=== PATIENT | female | born 1965 | race Caucasian/White ===

== ENCOUNTER 2018-04-03 19:25 | Emergency (ER) | payer OTHER ==
[~2018-04-03] VITALS: Ht 157.5 cm; Wt 92.1 kg
[~2018-04-03 19:25] MED LIST: ALBU90OI INH; ALPR.25; ALPR.25 PO; ANTOXYBENA OT; ANXIETY MED; AZIT250 PO; BENZ100A PO; CARI350 PO; CEPH250A; CITA20 PO; CLIN300; CLIN300 PO; CLON.1 PO; CODACE30 PO; CONEST.625; CRUTCH4 USE; CYCL10 PO; Cleocin HCl300 MG PO; DOXY100 PO; ERYT500 PO; ESTR2 PO; GABA100 PO; HYDACE10B PO; HYDACE5; HYDACE5 PO; HYDR-86; IBUP600 PO; IBUP800 PO; KETO10 PO; Mucinex600 MG PO; NAPR500 PO; Naprosyn500 MG PO; ONDA4ODT MM; OXYACE5T; OXYACE5T PO; OXYC5; PERIDEX15 ML MM; PRED20 PO; PROM25 PO; PROM25S PR; ROXICODONE5 MG PO; RXALBOI INH; RXANTBENOT AU; RXCODACET PO; RXERYT500 PO; RXHYDACE PO; RXONDA4ODT MM; RXTRAM50 PO; TRAM50 PO; TRAZ100 PO; TRAZ50 PO; Ultram50 MG PO
[2018-04-03 20:06] LABS: Source, Urine Voided
[2018-04-03 20:11] LABS: Appearance, Urine Clear (Clear); Bilirubin, Urine Neg (Neg); Blood, Urine Neg (Neg); Color, Urine Yellow (P-Yellow); Glucose Qualitative, Urine Neg (Neg); Ketones, Urine Neg (Neg); Leukocyte Esterase, Urine Neg (Neg); Nitrite, Urine Neg (Neg); Protein, Urine Neg (Neg); Urobilinogen, Urine NORM (Normal)
[2018-04-03 20:13] LABS: BASOPHILS ABSOLUTE AUTO 0.03 K/mm3 (0.00-0.23); BASOPHILS PERCENT AUTO 0 % (0-2); EOSINOPHILS ABSOLUTE AUTO 0.12 K/mm3 (0.00-0.68); EOSINOPHILS PERCENT AUTO 2 % (0-6); Hematocrit 41.7 % (33.0-51.0); Hemoglobin 13.4 g/dL (11.5-16.0); IMMATURE GRAN ABSOLUTE AUTO 0.02 K/mm3 (0.00-0.10); IMMATURE GRAN PERCENT AUTO 0 % (0-1); LYMPHOCYTES ABSOLUTE AUTO 2.81 K/mm3 (0.84-5.20); LYMPHOCYTES PERCENT AUTO 39 % (21-46); MONOCYTES ABSOLUTE AUTO 0.54 K/mm3 (0.16-1.47); MONOCYTES PERCENT AUTO 8 % (4-13); Mean Corpuscular HGB 27.9 pg (26.0-34.0); Mean Corpuscular HGB Conc 32.1 g/dL (31.5-36.5); Mean Corpuscular Volume 87 fL (80-100); Mean Platelet Volume 11.4 fL (9.1-12.4); NEUTROPHILS ABSOLUTE AUTO 3.63 K/mm3 (1.96-9.15); NEUTROPHILS PERCENT AUTO 51 % (41-73); Platelet Count 369 K/mm3 (150-400); RDW Coefficient Variation 12.4 % (11.7-14.2); RDW Standard Deviation 39.3 fL (35.1-46.3); Red Blood Cell Count 4.81 M/mm3 (3.80-5.20); White Blood Cell Count 7.15 K/mm3 (4.00-11.30)
[2018-04-03 20:47] LABS: Alanine Aminotransfer (ALT/SGP 26 U/L (12-78); Albumin, Blood 4.2 g/dL (3.4-5.0); Alk Phos 140 U/L (50-136); Anion Gap 4 mmol/L (6-16); Aspartate Aminotrans (AST/SGOT 25 U/L (12-37); Bilirubin, Total 0.3 mg/dL (0.1-1.0); Blood Urea Nitrogen 15 mg/dL (8-24); Bun/Creatinine Ratio 24.4 (12.0-20.0); CO2, Blood 28 mmol/L (21-32); Calcium, Blood 9.3 mg/dL (8.5-10.1); Chloride, Blood 109 mmol/L (98-108); Creatinine, Blood 0.62 mg/dL (0.40-1.00); Globulin, Blood 4.3 g/dL (2.2-4.0); Glomerular Filtration Rate >60 (60-); Glucose, Blood 116 mg/dL (70-99); Sodium, Blood 141 mmol/L (136-145); Total Protein, Blood 8.5 g/dL (6.4-8.2)
[2018-04-03] MEDS ORDERED: SENN187 PO (21:50)
== END 2018-04-03 22:26 | disposition home or self-care (01) ==
LOC: ER 19:25
PROVIDERS: Emergency Medicine
DX: R10.31 Right lower quadrant pain (principal); R11.0 Nausea; Z88.0 Allergy status to penicillin; Z79.899 Other long term (current) drug therapy; Z79.1 Long term (current) use of non-steroidal anti-inflammatories (NSAID)
CPT/HCPCS: 36415; 74018; 80053; 81003; 83690; 85025; 99283

== ENCOUNTER 2019-03-24 08:14 | Day surgery (SDC) | payer OTHER ==
[~2019-03-24] VITALS: Ht 157.5 cm; Wt 90.1 kg
[~2019-03-24 08:14] MED LIST changes: +ACET325 PO; +METPHE20 PO; +SENN187 PO
[2019-03-24] MEDS ORDERED: Norco 5-325 Ta1 EACH (09:36)
[2019-03-24] MEDS ORDERED: ALPR.25 PO (09:40)
--- NOTE | 2019-03-24 10:04 | NUR ---
PATIENT GAVE PERMISSION FOR ME TO CARE FOR HER TODAY 03/24/19. History, Chart, Medications and Allergies reviewed before start of procedure.Patient confirms NPO status and agrees with scheduled surgery. Patient reports completing Chlorhexadine shower X2 prior to admission to hospital.Lungs clear T/O to Auscultation. Surgical site prepped with 2% Chlorhexidine cloth wipe.
--- NOTE | 2019-03-24 10:12 | NUR ---
STUDENT RN ASSISTING WITH PREOPERATIVE CARE. AGREE WITH HER CHARTING AND CARE.
--- NOTE | 2019-03-24 12:30 | NUR ---
1210 ASSUMED CARE PT LAYING ON GURNEY EYES CLOSED RESP E/U FACIAL GRIMACE NOTED. JACKIE WRAP INTACT TO RIGHT KNEE PPP BILA RESP E/U
--- NOTE | 2019-03-24 12:49 | NUR ---
ELEVATED R LEG AT ADMIT TO STEP AND PLACED ICE. WILL ATTEMPT PO INTAKE, THEN ADMINISTER PO ANALGESIA INDICATED.
--- NOTE | 2019-03-24 13:18 | NUR ---
ASSUMING CARE OF PT.
--- NOTE | 2019-03-24 13:48 | NUR ---
PT DRINKING APPLE JUICE. DTR HAS RX. Discharge instructions reviewed with patient. Patient verbalizes understanding. Copy given to patient to take home. PT GOT DRESSED AND HAS ALL PERSONAL BELONGINGS. PT CRUTCHES AT HOME. Patient States Post-Procedure ride home has been arranged. NO QUESTIONS VOICED. PT READY FOR DC. Discharged via wheelchair to private car for ride home.
--- NOTE | 2019-03-24 14:41 | NUR ---
LATE ENTRY, PT STATES WHEN AT HOME USING HER OWN PAIN MEDICATION HER PAIN SCALE IS USUALLY AROUND A 7/10
== END 2019-03-24 22:36 | disposition home or self-care (01) ==
LOC: ORSCMMR 08:14 → ORD 09:30 → ORSCMMR 22:36
PROVIDERS: Orthopaedic Surgery
PROC: 0SBC4ZZ Excision of Right Knee Joint, Percutaneous Endoscopic Approach (ICD-10-PCS; principal; 2019-03-24 09:30)
DX: S83.241A Other tear of medial meniscus, current injury, right knee, initial encounter (principal); K21.9 Gastro-esophageal reflux disease without esophagitis; E66.01 Morbid (severe) obesity due to excess calories; Z68.36 Body mass index [BMI] 36.0-36.9, adult; Z79.899 Other long term (current) drug therapy
CPT/HCPCS: A9270-GY; J0171; J1100; J2250; J2405; J2704; J3010; J7120

== ENCOUNTER 2019-08-04 07:35 | Day surgery (SDC) | payer OTHER ==
[~2019-08-04] VITALS: Ht 157.5 cm; Wt 85.7 kg
[~2019-08-04 07:35] MED LIST changes: +ESCI20 PO; +Norco 5-325 Ta1 EACH
[2019-08-04] MEDS ORDERED: CYCL10 PO (08:53)
--- NOTE | 2019-08-04 12:22 | NUR ---
TRANSFERRED CARE TO [facility].
--- NOTE | 2019-08-04 12:24 | NUR ---
ASSUMED CARE OF PT. PT STATES PAIN LEVEL 5/10. STATES IT IS "FEELING BETTER", DRESSING D/I. ICE PACK ON KNEE. PEDAL PULSE INTACT. DENIES SOB. TOLERATING PO.
--- NOTE | 2019-08-04 12:51 | NUR ---
WRITTEN AND VERBAL D/C IN PASCALE TIONS GIVEN TO PT WITH STATED UNDERSTANDING.
== END 2019-08-04 22:39 | disposition home or self-care (01) ==
LOC: ORSCMMR 07:35 → ORD 09:00 → ORSCMMR 22:39
PROVIDERS: Orthopaedic Surgery
PROC: 0SBD4ZZ Excision of Left Knee Joint, Percutaneous Endoscopic Approach (ICD-10-PCS; principal; 2019-08-04 09:00)
DX: S83.242D Other tear of medial meniscus, current injury, left knee, subsequent encounter (principal); Z87.891 Personal history of nicotine dependence; E66.9 Obesity, unspecified; Z68.33 Body mass index [BMI] 33.0-33.9, adult
CPT/HCPCS: J0171; J1100; J1200; J2250; J2405; J2704; J3010; J7120

== ENCOUNTER 2019-11-05 11:39 | Day surgery (SDC) | payer OTHER ==
[~2019-11-05] VITALS: Ht 160 cm; Wt 78.9 kg
--- NOTE | 2019-11-05 12:51 | NUR ---
Ambulatory in Day Surgery History, Chart, Medications and Allergies reviewed before start of procedure.Patient confirms NPO status and agrees with scheduled surgery. Patient states colon prep results clear.Lungs clear T/O to Auscultation.
--- NOTE | 2019-11-05 13:27 | NUR ---
11/05/19 [id number] Sebastián Call History, Chart, Medications and Allergies reviewed before start of procedure.MONITOR INTACT WITH CONTINUOUS PULSE OXIMETRY AND INTERMITTENT BP.3-LEAD EKG REVIEWED WITH PHYSICIAN PRIOR TO START OF PROCEDURE.O2 VIA N/C INTACT THROUGHOUT SEDATION/PROCEDURE. PATIENT DETERMINED TO BE ASA APPROPRIATE FOR PROPOFOL SEDATION PRIOR TO START OF PROCEDURE BY DR. ABBOTT.
== END 2019-11-05 15:04 | disposition home or self-care (01) ==
LOC: ORSCMMR 11:39 → ORSCSDS 13:15 → ORD 13:15 → ORSCMMR 15:04
PROVIDERS: Internal Medicine Gastroenterology
PROC: 0DB68ZX Excision of Stomach, Via Natural or Artificial Opening Endoscopic, Diagnostic (ICD-10-PCS; principal; 2019-11-05 13:15)
PROC: 0DB98ZX Excision of Duodenum, Via Natural or Artificial Opening Endoscopic, Diagnostic (ICD-10-PCS; principal; 2019-11-05 13:15)
PROC: 0DBN8ZX Excision of Sigmoid Colon, Via Natural or Artificial Opening Endoscopic, Diagnostic (ICD-10-PCS; principal; 2019-11-05 13:15)
PROC: 0DBE8ZX Excision of Large Intestine, Via Natural or Artificial Opening Endoscopic, Diagnostic (ICD-10-PCS; principal; 2019-11-05 13:15)
DX: R10.13 Epigastric pain (principal); K92.1 Melena; R19.4 Change in bowel habit; D12.5 Benign neoplasm of sigmoid colon; K29.80 Duodenitis without bleeding; R11.0 Nausea; E66.01 Morbid (severe) obesity due to excess calories; Z68.33 Body mass index [BMI] 33.0-33.9, adult; Z87.891 Personal history of nicotine dependence; F41.8 Other specified anxiety disorders; Z79.899 Other long term (current) drug therapy
CPT/HCPCS: 88305; 88342; J2250; J2704; J7120

== ENCOUNTER 2019-11-13 08:34 | Emergency (ER) | payer OTHER ==
[~2019-11-13] VITALS: Ht 157.5 cm; Wt 80.7 kg
[2019-11-13] MEDS ORDERED: CRUTCH4 XX (09:15)
== END 2019-11-13 10:02 | disposition home or self-care (01) ==
LOC: ER 08:34
DX: S93.401A Sprain of unspecified ligament of right ankle, initial encounter (principal); S50.02XA Contusion of left elbow, initial encounter; F41.9 Anxiety disorder, unspecified; F32.9 Major depressive disorder, single episode, unspecified; Z88.0 Allergy status to penicillin; Z88.6 Allergy status to analgesic agent; Z88.8 Allergy status to other drugs, medicaments and biological substances; Z79.899 Other long term (current) drug therapy; Z87.891 Personal history of nicotine dependence; W01.10XA Fall on same level from slipping, tripping and stumbling with subsequent striking against unspecified object, initial encounter
CPT/HCPCS: 29515; 73610; 99283-25; L1906

== ENCOUNTER 2020-10-04 16:20 | Observation (INO) | payer OTHER ==
[~2020-10-04] VITALS: Ht 165.1 cm; Wt 83.4 kg
[~2020-10-04 16:20] MED LIST changes: +CRUTCH4 XX; -ESCI20 PO
[2020-10-04 16:41] LABS: Source, Urine Catheter
[2020-10-04 16:51] LABS: Appearance, Urine Cloudy (Clear); Bilirubin, Urine Neg (Neg); Blood, Urine 1+ (Neg); Color, Urine Yellow (P-Yellow); Glucose Qualitative, Urine Neg (Neg); Ketones, Urine Neg (Neg); Leukocyte Esterase, Urine 1+ (Neg); Nitrite, Urine Pos (Neg); Protein, Urine 2+ (Neg); Specific Gravity, Urine 1.025 (1.003-1.022); Urobilinogen, Urine NORM (Normal)
[2020-10-04 16:54] LABS: BASOPHILS ABSOLUTE AUTO 0.03 K/mm3 (0.00-0.23); BASOPHILS PERCENT AUTO 1 % (0-2); EOSINOPHILS ABSOLUTE AUTO 0.07 K/mm3 (0.00-0.68); EOSINOPHILS PERCENT AUTO 2 % (0-6); Hematocrit 37.6 % (33.0-51.0); Hemoglobin 11.6 g/dL (11.5-16.0); IMMATURE GRAN ABSOLUTE AUTO 0.01 K/mm3 (0.00-0.10); IMMATURE GRAN PERCENT AUTO 0 % (0-1); LYMPHOCYTES ABSOLUTE AUTO 1.79 K/mm3 (0.84-5.20); LYMPHOCYTES PERCENT AUTO 46 % (21-46); MONOCYTES ABSOLUTE AUTO 0.35 K/mm3 (0.16-1.47); MONOCYTES PERCENT AUTO 9 % (4-13); Mean Corpuscular HGB 27.8 pg (26.0-34.0); Mean Corpuscular HGB Conc 30.9 g/dL (31.5-36.5); Mean Corpuscular Volume 90 fL (80-100); Mean Platelet Volume 11.4 fL (9.1-12.4); NEUTROPHILS ABSOLUTE AUTO 1.68 K/mm3 (1.96-9.15); NEUTROPHILS PERCENT AUTO 43 % (41-73); Platelet Count 313 K/mm3 (150-400); RDW Coefficient Variation 12.6 % (11.7-14.2); RDW Standard Deviation 41.6 fL (35.1-46.3); Red Blood Cell Count 4.18 M/mm3 (3.80-5.20); White Blood Cell Count 3.93 K/mm3 (4.00-11.30)
[2020-10-04 17:11] LABS: Alanine Aminotransfer (ALT/SGP 41 U/L (12-78); Albumin, Blood 3.7 g/dL (3.4-5.0); Alk Phos 108 U/L (50-136); Anion Gap 4 mmol/L (6-16); Aspartate Aminotrans (AST/SGOT 38 U/L (12-37); Bilirubin, Total 0.2 mg/dL (0.1-1.0); Blood Urea Nitrogen 10 mg/dL (8-24); Bun/Creatinine Ratio 17.7 (12.0-20.0); CO2, Blood 33 mmol/L (21-32); Calcium, Blood 9.2 mg/dL (8.5-10.1); Chloride, Blood 110 mmol/L (98-108); Creatinine, Blood 0.57 mg/dL (0.40-1.00); Ethanol (Alcohol), Blood, Med <3 mg/dL; Free Thyroxine 1.04 ng/dL (0.70-1.60); Globulin, Blood 3.6 g/dL (2.2-4.0); Glomerular Filtration Rate >60 (60-); Glucose, Blood 107 mg/dL (70-99); Potassium, Blood 3.1 mmol/L (3.5-5.5); Salicylate <1.7 mg/dL (2.8-20.0); Sodium, Blood 147 mmol/L (136-145); Thyroid Stimulating Hormone 0.365 uIU/mL (0.360-4.800); Total Protein, Blood 7.3 g/dL (6.4-8.2)
[2020-10-04 17:12] LABS: U Amphetamine Screen DETECTED; U Barbituate Screen Not Detected; U Benzodiazapine Screen DETECTED; U Buprenorphine Screen Not Detected; U Cannabinoids Screen Not Detected; U Cocaine Screen Not Detected; U Methadone Screen Not Detected; U Methamphetamine Screen DETECTED; U Opiates Screen Not Detected; U Oxycodone Screen Not Detected; U Phencyclidine Screen Not Detected; U Propoxyphene Screen Not Detected
[2020-10-04 17:19] LABS: Acetaminophen, Random <2.0 ug/mL (10.0-30.0)
[2020-10-04 17:31] LABS: Amorphous Light (0-Heavy); Bacteria Many /hpf; Mucus Heavy (0-Heavy); Squamous Epithelial Cells Rare /hpf (Few)
[2020-10-04] MEDS ORDERED: ALPR.5 PO (18:35)
[2020-10-04] MEDS ORDERED: ALPR1 PO (18:35)
[2020-10-04] MEDS ORDERED: ESCI10 PO (18:48)
[2020-10-04] MEDS ORDERED: CYCL10 PO (18:49)
--- NOTE | 2020-10-04 19:35 | NUR ---
RECEIVED PT FROM ER VIA [facility]. PT. EASILY AROUSABLE, ANSWERS QUESTIONS APPRPRIATELY. ABLE TO REPOSITION HERSELF INDEPENDENTLY. ROOM MITIGATED FOR SAFETY. CONFIRMED WITH CENTRAL MONITORING PT. ON CAMERA FOR SAFETY. 1:1 SITTER AT BEDSIDE. POISON CONTROL CONTACTED. PT MAINTAINING SPO2> 90% ON ROOM AIR. LUNGS CLEAR. PT DENIES NAUSEA OR DISCOMFORT.
--- NOTE | 2020-10-04 20:59 | NUR ---
NOTIFIED POISON CONTROL OF PT TOOK #40 OF 0.5 XANAX. RECOMMENDATION TO MONITOR PT AND IF NECESSARY INTUBATE FOR AIRWAY PROTECTION. RECOMMENDATION NOT TO REVERSE BENZO'S. THEY WILL F/U IN AM.
--- NOTE | 2020-10-05 00:42 | NUR ---
PT INCREASINGLY AGITATED, PULLING BLOOD PRESSURE CUFF AND SPO2 PROBE OFF ATTEMPTING TO GET OUT OF BED. PT DEMANDING TO USE THE TELEPHONE TO CALL FAMILY, REMINDED PT THAT SHE IS SAFE AND THAT HER FAMILY KNOWS WHERE SHE IS AND WHAT HAPPENED. PT ASKING TO GO HOME, REMINDED THAT SHE IS ON A 2-MD HOLD UNTIL THE PSYCHIATRIST CAN EVALUATE HER. PT CONCERNED THAT SHE WILL NO LONGER BE PRESCRIBED XANAX AND STATES "I SHOULD HAVE JUST STAYED HOME, NEXT TIME I WILL" AND REQUESTS SOMETHING TO HELP HER SLEEP. EDUCATED PT THAT BECAUSE OF THE MEDICATIONS SHE TOOK WE WOULD BE UNABLE TO GIVE HER MEDICATIONS TO HELP HER SLEEP. PT CONTINUES TO BE ON CAMERA MONITORING, 1:1 SITTER, BED IN LOW/LOCKED POSITION, DOOR/CURTAIN OPEN.
--- NOTE | 2020-10-05 03:00 | NUR ---
ASSUMED PT CARE. PT RESTING QUIETLY IN BED. SITTER W DIRECT LINE OF SITE TO MONITOR AT PT DOORWAY. VSS, MONITOR SHOWS NSR. TAKING SIPS OF JUICE AND CRACKERS WO DIFF. CONT TO MONITOR.
--- NOTE | 2020-10-05 06:07 | NUR ---
CONT TO REST QUIETLY, VSS. CONT W 1:1 SITTER AT DOORWAY. REPORT TO DAYSHIFT.
[2020-10-05 06:46] LABS: Anion Gap 6 mmol/L (6-16); Blood Urea Nitrogen 10 mg/dL (8-24); Bun/Creatinine Ratio 19.3 (12.0-20.0); CO2, Blood 31 mmol/L (21-32); Calcium, Blood 8.4 mg/dL (8.5-10.1); Chloride, Blood 109 mmol/L (98-108); Creatinine, Blood 0.52 mg/dL (0.40-1.00); Glomerular Filtration Rate >60 (60-); Glucose, Blood 92 mg/dL (70-99); Magnesium, Blood 1.9 mg/dL (1.6-2.4); Sodium, Blood 146 mmol/L (136-145)
--- NOTE | 2020-10-05 07:05 | NUR ---
ASSUMED CARE: RECEIVED REPORT FROM NOC RN. PT APPEARS TO BE SLEEPING UPON ENTERING THE ROOM, WAKES EASILY TO VERBAL STIMULI. REVIEWED ORDERS AND LABS. PT K+ APPEARS TO BE LOW THIS MORNING. WILL CALL DR CASSANDRA KHALIL. NO ACUTE DISTRESS NOTED. CAMERA IS ON AND TOLU MOLINA IS OUTSIDE THE ROOM. WILL CONTINUE TO MONITOR AND ASSESS FURTHER.
--- NOTE | 2020-10-05 08:47 | NUR ---
SUICIDE: PT STATES SHE ONLY TOOK 10 TABS OF 0.5MG XANEX, NOT 40 PREVIOUSLY REPORTED. PT WAS CONFUSED TO WHERE SHE IS, BUT WITHOUT TELLING HER SHE IS ABLE TO STATE SHE IS IN A HOSPITAL, IN [place]. THEN WAS ABLE TO STATE [facility] THE ONLY HOSPITAL IN [place]. 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 WILL CONTINUE TO MONIOTOR.
--- NOTE | 2020-10-05 10:26 | NUR ---
Suicide Safety Plan completed -interview 09 today in ICU 2 Pt on 1:1 and involuntary hold. Pt had showered and returned to room. She engaged in interview. Reports she took 10 Xanax after a fight with her boyfriend. He "dared" her and accused her of being "attention seeking". Pt reports boyfriend left and a friend came over and asked what she had taken. friend called 911. Pt released from Substance treatment at [facility] on Sep 22. She reports starting lexapro during treatment and "felt normal again". she stopped her meds upon DC from treatment, and relapsed several days ago on meth. Pt reports no previous OD or suicide atemots. "I want to live" , "get a job". She sees Dr. Trimble at [facility] for meds, and was to start counseling today. She reports panic attacks and guards her use of Xanax as she knows she only gets 3 per day, She reports current meds ar Clonadine, Flexaril, Lexapro, Xanax. She states homeless, but lives in a "[facility] [employer] [facility] [employer] trailer" next to a [place], and has good relationahip with physician scribe there. She became tearful during interview, mother 3 years ago, and "Pop Pop" her stepfather who she "let down". He lives in [place] and she does not have Meth connections there, and she wants to DC there. She is "done" with the boyfriend who is treating her badly and "mean". She does not drink. She reports starting meth when she had Percocet for 5 months after surgery, and meds stopped. She has a daughter she has not seen since March--she alluded it was due to her substance abuse and behaviors. Houseperson informed of need for f/u appointments at [facility], and request to DC to staep fathers. She does have current meds at her trailer. Esther Skinner M.Ed., [facility], Behavior Health Director
[2020-10-05 15:14] LABS: Anion Gap 5 mmol/L (6-16); Blood Urea Nitrogen 8 mg/dL (8-24); Bun/Creatinine Ratio 15.2 (12.0-20.0); CO2, Blood 28 mmol/L (21-32); Calcium, Blood 8.9 mg/dL (8.5-10.1); Chloride, Blood 112 mmol/L (98-108); Creatinine, Blood 0.53 mg/dL (0.40-1.00); Glomerular Filtration Rate >60 (60-); Glucose, Blood 76 mg/dL (70-99); Potassium, Blood 3.8 mmol/L (3.5-5.5); Sodium, Blood 145 mmol/L (136-145)
--- NOTE | 2020-10-05 15:31 | NUR ---
Spiritual care visit conducted. Patient is sitting up in bed and eating. Patient immediately begins crying when I walk in the . She tells me that she wants to live, she does not want to hurt her family and she wants to get back to her alevism and healthy relationships. She goes over the events that led to the suicide attempt, her struggle with addiction and her struggle to love and forgive herself. We talk at length about her paola and her desire to be forgiven and restored to God. I normalize patient's feeling, hear confession and provide emotional/spiritual support, therapeutic listening, pastoral psychologist counseling and prayer. Patient responds well and is moved to tears during the prayer. Patient states that the time and care has been encouraging to her. I will continue to assist patient in working through the emotional/spiritual implications of the choices she has made and how to move forward in her coping skills and resources.
[2020-10-05] MEDS ORDERED: CIPR500 PO (16:10)
--- NOTE | 2020-10-05 17:44 | NUR ---
DISCHARGE: PT TAXI CALLED FOR A RIDE OUT [place] NO SNELL OR MONEY PT IS HOMELESS. HOSPITAL PAY FOR TAXI APPROVED BY KAILEY PORTILLO RN STOCK CONTROLLER. WHEELED PT OUT TO ADMIT WAITING ROOM. TO WAIT FOR TAXI CALLED. REPORT OF BEING APPROX 30 MIN BEFORE THEY ARIVE.
== END 2020-10-05 17:40 | disposition home or self-care (01) ==
LOC: ER 16:20 → ICUW 16:21 → ICUE 16:21
PROVIDERS: Emergency Medicine; Family Medicine; ADMIT Internal Medicine
DX: T42.4X2A Poisoning by benzodiazepines, intentional self-harm, initial encounter (principal); Z79.899 Other long term (current) drug therapy; Z87.891 Personal history of nicotine dependence; Z88.6 Allergy status to analgesic agent; Z88.0 Allergy status to penicillin; Z88.8 Allergy status to other drugs, medicaments and biological substances; E87.6 Hypokalemia; F41.8 Other specified anxiety disorders; F19.10 Other psychoactive substance abuse, uncomplicated
CPT/HCPCS: 36415; 80048; 80053; 81001; 81025; 83735; 84439; 84443; 85025; 87077; 87086; 87186; 93005; 93010; 96372; 96374; 99285-25; A9270; C9113; G0378; G0480; J1650; J7030; J7060; P9612

== ENCOUNTER 2021-08-27 23:55 | Emergency (ER) | payer OTHER ==
[~2021-08-27] VITALS: Ht 157.5 cm; Wt 92.5 kg
[~2021-08-27 23:55] MED LIST changes: +ALPR.5 PO; +ALPR1 PO; +CIPR500 PO; +ESCI10 PO
== END 2021-08-28 07:52 | disposition home or self-care (01) ==
LOC: ER 23:55
DX: F19.239 Other psychoactive substance dependence with withdrawal, unspecified (principal); R11.2 Nausea with vomiting, unspecified; Z88.0 Allergy status to penicillin; Z88.8 Allergy status to other drugs, medicaments and biological substances; Z88.6 Allergy status to analgesic agent; Z79.899 Other long term (current) drug therapy
CPT/HCPCS: 36415; 96374; 96375; 96376; 99284; A9270; J2060; J2405

== ENCOUNTER 2022-08-10 10:21 | Emergency (ER) | payer OTHER ==
[~2022-08-10] VITALS: Ht 157.5 cm; Wt 98.0 kg
[2022-08-10 11:36] LABS: BASOPHILS ABSOLUTE AUTO 0.03 K/mm3 (0.00-0.23); BASOPHILS PERCENT AUTO 1 % (0-2); EOSINOPHILS PERCENT AUTO 2 % (0-6); Hematocrit 39.1 % (33.0-51.0); Hemoglobin 12.9 g/dL (11.5-16.0); IMMATURE GRAN ABSOLUTE AUTO 0.05 K/mm3 (0.00-0.10); IMMATURE GRAN PERCENT AUTO 1 % (0-1); LYMPHOCYTES ABSOLUTE AUTO 1.85 K/mm3 (0.84-5.20); LYMPHOCYTES PERCENT AUTO 38 % (21-46); MONOCYTES ABSOLUTE AUTO 0.35 K/mm3 (0.16-1.47); MONOCYTES PERCENT AUTO 7 % (4-13); Mean Corpuscular HGB 28.7 pg (26.0-34.0); Mean Corpuscular Volume 87 fL (80-100); Mean Platelet Volume 10.2 fL (9.1-12.4); NEUTROPHILS ABSOLUTE AUTO 2.53 K/mm3 (1.96-9.15); NEUTROPHILS PERCENT AUTO 52 % (41-73); Platelet Count 332 K/mm3 (150-400); RDW Coefficient Variation 11.9 % (11.7-14.2); RDW Standard Deviation 37.9 fL (35.1-46.3); Red Blood Cell Count 4.49 M/mm3 (3.80-5.20); White Blood Cell Count 4.91 K/mm3 (4.00-11.30)
[2022-08-10 11:52] LABS: Albumin, Blood 3.8 g/dL (3.4-5.0); Albumin/Globulin Ratio 0.8 (0.8-1.8); Bilirubin, Total 0.3 mg/dL (0.1-1.0); Bun/Creatinine Ratio 16.6 (12.0-20.0); Calcium, Blood 9.3 mg/dL (8.5-10.1); Creatinine, Blood 0.73 mg/dL (0.40-1.00); Globulin, Blood 4.6 g/dL (2.2-4.0); Potassium, Blood 3.5 mmol/L (3.5-5.5); Total Protein, Blood 8.4 g/dL (6.4-8.2)
[2022-08-10] MEDS ORDERED: QUET300 PO (12:00)
[2022-08-10] MEDS ORDERED: TRAZ100 PO (12:01)
[2022-08-10] MEDS ORDERED: BUPRENORPHIN-N1 EAC1 SL (12:02)
== END 2022-08-10 13:50 | disposition home or self-care (01) ==
LOC: ER 10:21
PROVIDERS: Student in an Organized Health Care Education/Training Program
DX: R07.89 Other chest pain (principal); R79.89 Other specified abnormal findings of blood chemistry; Z79.899 Other long term (current) drug therapy; Z88.6 Allergy status to analgesic agent; Z88.5 Allergy status to narcotic agent; Z88.0 Allergy status to penicillin; Z87.891 Personal history of nicotine dependence
CPT/HCPCS: 36415; 71045; 80053; 83690; 84484; 85025; 93005; 93010

== ENCOUNTER 2022-11-18 01:45 | Emergency (ER) | payer OTHER ==
[~2022-11-18] VITALS: Ht 157.5 cm; Wt 98.4 kg
[~2022-11-18 01:45] MED LIST changes: +BUPRENORPHIN-N1 EAC1 SL; +QUET300 PO
== END 2022-11-18 04:27 | disposition home or self-care (01) ==
LOC: ER 01:45
DX: M79.671 Pain in right foot (principal); M25.571 Pain in right ankle and joints of right foot; W19.XXXA Unspecified fall, initial encounter; Z88.0 Allergy status to penicillin; Z88.5 Allergy status to narcotic agent; Z88.6 Allergy status to analgesic agent; Z79.899 Other long term (current) drug therapy; Z87.891 Personal history of nicotine dependence
CPT/HCPCS: 73610; 73620; A9270

== ENCOUNTER 2022-11-20 23:56 | Emergency (ER) | payer OTHER ==
[~2022-11-20] VITALS: Ht 157.5 cm; Wt 98.4 kg
== END 2022-11-21 03:37 | disposition home or self-care (01) ==
LOC: ER 23:56
DX: M25.571 Pain in right ankle and joints of right foot (principal); S90.31XA Contusion of right foot, initial encounter; W19.XXXA Unspecified fall, initial encounter; Z88.0 Allergy status to penicillin; Z88.6 Allergy status to analgesic agent; Z88.5 Allergy status to narcotic agent; Z79.899 Other long term (current) drug therapy; Z87.891 Personal history of nicotine dependence
CPT/HCPCS: 82947; 93005; 93010; 96372; 99284-25; J1885